=== PATIENT | male | born 2005 | race Caucasian/White ===

== ENCOUNTER 2025-05-31 21:10 | Emergency (ER) | payer SELFPAY ==
[~2025-05-31] VITALS: Ht 185.4 cm; Wt 77.1 kg
== END 2025-05-31 22:40 | disposition short-term general hospital (02) ==
LOC: ED 21:10
DX: M54.2 Cervicalgia (principal); M54.6 Pain in thoracic spine; V86.56XA Driver of dirt bike or motor/cross bike injured in nontraffic accident, initial encounter; Y93.89 Activity, other specified; Y92.410 Unspecified street and highway as the place of occurrence of the external cause; Y99.8 Other external cause status